=== PATIENT | male | born 1990 | race Caucasian/White ===

== ENCOUNTER 2017-02-19 00:08 | Emergency (ER) | payer SELFPAY ==
[2017-02-19] MEDS: oxyCODONE/APAP 5/325 1 TAB TABLET PO (00:48)
[2017-02-19] MEDS: KETOROLAC 30 MG/ML INJ. IV (00:48)
[2017-02-19 01:03] LABS: ADD MAN DIFF? NO
[2017-02-19 01:14] LABS: BASO # 0.1 x10^3/uL (0.0-0.2); BASO % 1 % (0-3); EOS # 0.6 x10^3/uL (0.0-0.7); EOS % 5 % (0-3); HEMATOCRIT 48.2 % (39.0-53.0); HEMOGLOBIN 16.1 g/dL (13.0-17.5); LYMPH # 3.3 x10^3/uL (1.0-4.8); LYMPH % 30 % (24-48); MEAN CORPUSCULAR HEMOGLOBIN 29 pg (25-35); MEAN CORPUSCULAR HGB CONC 33 g/dL (31-37); MEAN CORPUSCULAR VOLUME 86 fL (79-100); MONO # 0.8 x10^3/uL (0.0-1.1); MONO % 7 % (0-9); NEUT # 6.4 x10^3uL (1.8-7.7); NEUT % 57 % (31-73); PLATELET COUNT 233 x10^3/uL (140-400); RED BLOOD COUNT 5.63 x10^6/uL (4.30-5.70); RED CELL DISTRIBUTION WIDTH 14.4 % (11.5-14.5); WHITE BLOOD COUNT 11.2 x10^3/uL (4.0-11.0)
[2017-02-19 01:33] LABS: ANION GAP 13 (6-14); BLOOD UREA NITROGEN 11 mg/dL (8-26); BUN/CREATININE RATIO 14 (6-20); CALCIUM 8.7 mg/dL (8.5-10.1); CARBON DIOXIDE 24 mmol/L (21-32); CHLORIDE 105 mmol/L (98-107); CREATININE 0.8 mg/dL (0.7-1.3); GFR 116.9; GLUCOSE 88 mg/dL (70-99); POTASSIUM 3.7 mmol/L (3.5-5.1); SODIUM 142 mmol/L (136-145)
[2017-02-19 01:39] LABS: ALBUMIN 4.4 g/dL (3.4-5.0); ALBUMIN/GLOBULIN RATIO 1.3 (1.0-1.7); ALK PHOS 63 U/L (46-116); ALT (SGPT) 27 U/L (16-63); AST (SGOT) 21 U/L (15-37); TOTAL BILIRUBIN 0.2 mg/dL (0.2-1.0); TOTAL PROTEIN 7.7 g/dL (6.4-8.2)
[2017-02-19 01:52] LABS: TROPONINI < 0.017 ng/mL (0.000-0.055)
== END 2017-02-19 02:50 | disposition home or self-care (01) ==
LOC: ER 00:08
DX: R07.89 Other chest pain (principal); R05 Cough; F17.200 Nicotine dependence, unspecified, uncomplicated; Z91.048 Other nonmedicinal substance allergy status
CPT/HCPCS: 36415; 71045; 80053; 84484; 85025; 93005; 96374; 99285-25; J1885

== ENCOUNTER 2017-02-27 14:54 | Emergency (ER) | payer SELFPAY ==
[2017-02-27] MEDS: CYCLOBENZAPRINE 10 MG TABLET. PO (15:17)
[2017-02-27] MEDS: HYDROcodone/APAP 5/325MG 1 TAB TABLET PO (15:17)
[2017-02-27] MEDS: IBUPROFEN 600 MG TABLET. PO (15:17)
== END 2017-02-27 16:10 | disposition home or self-care (01) ==
LOC: ER 14:54
DX: M54.5 Low back pain (principal); G89.29 Other chronic pain; Z87.891 Personal history of nicotine dependence; Z91.048 Other nonmedicinal substance allergy status; W00.0XXA Fall on same level due to ice and snow, initial encounter; Y93.89 Activity, other specified; Y92.89 Other specified places as the place of occurrence of the external cause; Y99.8 Other external cause status
CPT/HCPCS: 72131; 99284-25